=== PATIENT | female | born 1950 | race Caucasian/White ===

== ENCOUNTER → 2021-07-14 | Outpatient (CLI) | payer MEDICARE ==
[~2021-07-14] MED LIST: BENICAR40 MG PO; CATAPRES 0.1MG0.1 MG PO; CRESTOR20 MG PO; ELIQUIS5 MG PO; GABAPENTIN400 MG PO; GLUCOPHAGE 500500 MG PO; IMDUR ER TAB 6060 MG PO; KEFLEX CAP 500500 MG PO; MICROZIDE12.5 MG PO; NORVASC2.5 MG PO; ZANAFLEX 4 MG TA4 MG PO; ZOLOFT100 MG PO
[2021-07-14 13:35] LABS: HEMOGLOBIN 12.5 gm/dl (12.3-15.3); RED BLOOD COUNT 4.04 M/UL (4.00-5.10); WHITE BLOOD COUNT 6.7 K/UL (4.5-11.0)
== END ==
LOC: LAB 13:16
PROVIDERS: Family Medicine
DX: R17 Unspecified jaundice (principal)
CPT/HCPCS: 36415; 80053; 85025